=== PATIENT | female | born 1990 ===

== ENCOUNTER 2022-10-08 14:42 | Emergency (ER) | payer MEDICAID ==
[2022-10-08] MEDS ORDERED: Sodium Chloride 0.9% 10 ML Syringe FLUSH PRN (15:22)
[2022-10-08] MEDS ORDERED: Sodium Chloride 0.9% 2.5 ML Syringe FLUSH PRN (15:22)
[2022-10-08 15:46] LABS: BASOPHILS ABSOLUTE AUTO 0.1 K/uL (0.0-0.1); BASOPHILS PERCENT AUTO 0.6 % (0.0-1.5); EOSINOPHILS ABSOLUTE AUTO 0.1 K/uL (0.0-0.7); EOSINOPHILS PERCENT AUTO 1.7 % (0.0-7.0); HEMOGLOBIN 14.7 g/dL (12.0-16.0); LYMPHOCYTES ABSOLUTE AUTO 1.6 K/uL (0.6-2.4); LYMPHOCYTES PERCENT AUTO 20.3 % (16.0-40.0); MEAN CORPUSCULAR HEMOGLOBIN 30.1 pg (27.0-32.0); MEAN CORPUSCULAR VOLUME 85.9 fL (80.0-98.0); MONOCYTES ABSOLUTE AUTO 0.6 K/uL (0.0-0.8); MONOCYTES PERCENT AUTO 7.6 % (0.0-15.0); NEUTROPHILS ABSOLUTE AUTO 5.6 K/uL (1.4-5.7); NEUTROPHILS PERCENT AUTO 69.8 % (48.0-80.0); NRBC ABSOLUTE 0 K/uL; PLATELET COUNT,PLT 295 K/uL (150-400); RED BLOOD CELL COUNT 4.89 M/uL (4.30-5.90); WHITE BLOOD CELL COUNT,WBC 8.01 K/uL (4.0-11.0)
[2022-10-08] MEDS ORDERED: Ketorolac 30 MG/ML SDV IVPUSH ONE (15:55)
[2022-10-08 16:04] LABS: CARBON DIOXIDE,CO2 27.4 mmol/L (21.0-32.0); CREATININE 0.7 mg/dL (0.6-1.0); EST CRCL DRUG DOSING (CG) 117.47 mL/min
[2022-10-08] MEDS ORDERED: Iopamidol 755 Mg/ML 100 ML Bottle IVPUSH ONE (16:37)
== END 2022-10-08 18:11 | disposition home or self-care (01) ==
LOC: MW.ED 14:42
DX: K04.7 Periapical abscess without sinus (principal)
CPT/HCPCS: 36415; 70491; 80048; 81025; 85025; 96374; 99284; J1885; J3490; Q9967